=== PATIENT | male | born 1965 | race Caucasian/White ===

== ENCOUNTER 2018-12-19 07:54 | Emergency (ER) | payer MEDICARE ==
[2018-12-19] MEDS ORDERED: ONDANSETRON HCL INJ/PF 4 MG/2 ML SDV IV ONE (08:29)
[2018-12-19] MEDS ORDERED: MORPHINE SULFATE 10 MG/ML INJ IV ONE (08:30)
[2018-12-19 08:47] LABS: HEMATOCRIT 48.9 % (37.9-51.0); HEMOGLOBIN 16.5 g/dL (13.5-17.0); MEAN CORPUSCULAR HEMOGLOBIN 31.5 pg (27.0-33.4); MEAN CORPUSCULAR HGB CONC 33.8 g/dL (32.0-36.0); MEAN CORPUSCULAR VOLUME 93 fl (80-97); PLATELET COUNT 242 10^3/uL (150-450); RED BLOOD COUNT 5.26 10^6/uL (4.35-5.55); RED CELL DISTRIBUTION WIDTH 13.8 % (11.5-14.0); WHITE BLOOD COUNT 12.4 10^3/uL (4.0-10.5)
--- NOTE | 2018-12-19 09:00 | ER Document Report ---
ED General - General Chief Complaint: Abdominal Pain Stated Complaint: STOMACH PAIN Time Seen by Provider: 12/19/18 08:20 Notes: Patient is a 53-year-old male who presents emergency department with a chief complaint of abdominal pain. Patient states that he is gained 20 pounds in the last 2 weeks. Patient did have a hernia repair about 4 years ago with a mesh placed. He states that there is apparently a recall on the mesh that was placed . Patient states that he has had some nausea and vomiting. He also states that he has been constipated. He then took a stool softener and since then has had diarrhea. He states that his stools are not normal stools and he feels like he is in "skinny stools." Patient has a past medical history of PTSD and depression. He reports a recent change in his medications from Effexor to Cymbalta. TRAVEL OUTSIDE OF THE [place] IN LAST 30 DAYS: No - Related Data Allergies/Adverse Reactions: No Known Allergies Allergy (Unverified 12/19/18 08:05) Past Medical History - Social History Smoking Status: Current Every Day Smoker Chew tobacco use (# tins/day): No Frequency of alcohol use: None Drug Abuse: None Family History: Reviewed & Not Pertinent Patient has suicidal ideation: No Patient has homicidal ideation: No Review of Systems - Review of Systems Notes: REVIEW OF SYSTEMS: CONSTITUTIONAL : Denies recent illness. Denies recent unintentional weight loss. Denies fever, chills, or sweats. EENT: Denies eye, ear, throat, or mouth pain, discharge, or symptoms. Denies nasal or sinus congestion. CARDIOVASCULAR: Denies chest pain. RESPIRATORY: Denies shortness of breath, cough, congestion, difficulty breathing, or wheezing. GASTROINTESTINAL: See HPI. GENITOURINARY: Denies difficulty urinating, burning, blood in urine, urgency or frequency. MUSCULOSKELETAL: Denies neck and back pain. Denies joint pain or swelling. SKIN: Denies rash, itchiness, or lesions HEMATOLOGIC : Denies easy bruising or bleeding. LYMPHATIC: Denies swollen, painful, enlarged glands. NEUROLOGICAL: Denies no numbness or tingling denies weakness. Denies headache. Denies altered mental status. Denies alteration in speech. PSYCHIATRIC: Denies stress, anxiety, alteration in sleep patterns, or depression. All other systems reviewed and negative. Physical Exam - Vital signs Vitals: Temp Pulse Resp BP Pulse Ox 98.2 F 87 20 151/89 H 97 12/19/18 08:02 12/19/18 08:02 12/19/18 08:02 12/19/18 08:02 12/19/18 08:02 - Notes Notes: PHYSICAL EXAMINATION: GENERAL: Appears well, healthy, well-nourished, no acute distress. HEAD: Normocephalic, atraumatic. EYES: PERRL, conjunctiva normal, all extraocular movements intact, sclera nonicteric ENT: Moist mucous membranes. NECK: Supple, no noticeable swelling, redness, rash. Normal range of motion. LUNGS: Equal breath sounds bilaterally and clear to auscultation. No wheezes rales or rhonchi. CARDIOVASCULAR: S1-S2, regular rate, regular rhythm. Grade 3 systolic murmur. Radial pulses 2+, normal. ABDOMEN: Normoactive bowel sounds. Firm, rounded abdomen. EXTREMITIES: Normal strength and range of motion, no pitting or edema. No cyanosis. NEUROLOGICAL: Moves all extremities upon command. Strength 5/5 in all extremities. PSYCH: Normal mood, normal affect. SKIN: Warm, dry. No rash, lesions, ulcerations noted. Normal skin turgor. Course - Re-evaluation Re-evalutation: 12/19/18 11:[address] of the abdomen and pelvis show a normal amount of omentum is fat noted. There is no incarcerated bowel noted. CBC, chemistries, and urinalysis are all unremarkable. Patient will follow-up with surgery outpatient. Follow- up precautions were given. Verbal discharge instructions were given to the patient. They verbalized understanding. They are stable for discharge. - Vital Signs Vital signs: Temp Pulse Resp BP Pulse Ox 98.2 F 87 20 151/89 H 97 12/19/18 08:02 12/19/18 08:02 12/19/18 08:02 12/19/18 08:02 12/19/18 08:02 - Laboratory Result Diagrams: 12/19/18 08:35 12/19/18 08:35 Laboratory results interpreted by me: 12/19/18 12/19/18 08:35 08:35 WBC 12.4 H Band Neutrophils % 1 L Monocytes % (Manual) 2 L Metamyelocytes % 2 H Abs Neuts (Manual) 8.6 H Carbon Dioxide 21 L Glucose 174 H - EKG Interpretation by Me Additional EKG results interpreted by me: 12/19/18 09:01 Sinus rhythm with an incomplete right bundle branch block. Rate 99. AR 132; QR S 110; QT 348; QTc 447. No ST elevations or depressions noted. Discharge - Discharge Clinical Impression: Fatty hernia of linea alba Abdominal pain Qualifiers: Abdominal location: unspecified location Qualified Code(s): R10.9 - Unspecified abdominal pain Condition: Stable Disposition: HOME, SELF-CARE Instructions: Abdominal Pain ([facility]), Antinausea Medication ([facility]) Additional Instructions: You were seen today in the emergency department for abdominal pain. You have a fat hernia. Please follow-up with surgery in regards to this visit. They can evaluate your previous hernia repair. Make sure you splint your abdomen when you cough. You also are constipated. Make sure you eat green leafy vegetables and fruits high in fiber. You are also being placed on MiraLAX to help with your bowel movements. You can buy this [id number] or use the prescription sent home with you. You are also being sent home with Zofran, medication for nausea. Prescriptions: Polyethylene Glycol 3350 [Miralax] 1 cap PO DAILY #527 powder Ondansetron HCl [Zofran 4 mg Tablet] 1 - 2 tab PO Q4H PRN #10 tablet PRN Reason: Forms: Return to Work Referrals: SAMY HAMMER MD [[facility]] - Follow up in 3-5 days IAN CASAS DC [NO LOCAL MD] - Follow up as needed
[2018-12-19 09:02] LABS: APPEARANCE,URINE CLEAR; BILIRUBIN,URINE NEGATIVE (NEGATIVE); COLOR,URINE YELLOW; GLUCOSE, URINE NEGATIVE (NEGATIVE); KETONES,URINE NEGATIVE (NEGATIVE); LEUKOCYTE ESTERASE,URINE NEGATIVE (NEGATIVE); NITRITE,URINE NEGATIVE (NEGATIVE); PROTEIN,URINE NEGATIVE (NEGATIVE); URINE SPECIFIC GRAVITY 1.023; UROBILINOGEN,URINE NEGATIVE mg/dL (<2.0)
[2018-12-19 09:06] LABS: ALBUMIN 4.3 g/dL (3.5-5.0); ALKALINE PHOSPHATASE 76 U/L (38-126); ANION GAP 11 (5-19); ASPARTATE AMINO TRANSFERASE 21 U/L (17-59); BILIRUBIN,DIRECT 0.1 mg/dL (0.0-0.4); BILIRUBIN,TOTAL 0.9 mg/dL (0.2-1.3); BLOOD UREA NITROGEN 18 mg/dL (7-20); CARBON DIOXIDE 21 mmol/L (22-30); CHLORIDE 106 mmol/L (98-107); GLUCOSE 174 mg/dL (75-110); POTASSIUM 4.1 mmol/L (3.6-5.0); TOTAL PROTEIN 7.3 g/dL (6.3-8.2)
[2018-12-19] MEDS ORDERED: NORMAL SALINE 1000 ML 1,000 ML IV ONE (09:20)
[2018-12-19 09:21] LABS: ABSOLUTE LYMPHOCYTES# (MANUAL) 3.6 10^3/uL (0.5-4.7); ABSOLUTE MONOCYTES # (MANUAL) 0.2 10^3/uL (0.1-1.4); BAND NEUTROPHILS % (MANUAL) 1 % (3-5); BASOPHILS % (MANUAL) 0 % (0-2); EOSINOPHILS % (MANUAL) 0 % (0-6); LYMPHOCYTES % (MANUAL) 25 % (13-45); METAMYELOCYTES % (MANUAL) 2 % (0); MONOCYTES % (MANUAL) 2 % (3-13); OVALOCYTES SLIGHT; PLATELET COMMENT ADEQUATE; POIKILOCYTOSIS SLIGHT; SEGMENTED NEUTROPHILS % (MAN) 66 % (42-78); TOTAL CELLS COUNTED 100
--- NOTE | 2018-12-19 10:59 | RADIOLOGY REPORT (SQ) ---
EXAM DESCRIPTION: CT ABD/PELVIS WITH IV ONLY COMPLETED DATE/TIME: 12/19/2018 10:32 am REASON FOR STUDY: abdominal pain/distension COMPARISON: None. TECHNIQUE: CT scan of the abdomen and pelvis performed using helical scanning technique with dynamic intravenous contrast injection. No oral contrast. Images reviewed with lung, soft tissue, and bone windows. Reconstructed coronal and sagittal MPR images reviewed. Delayed images for evaluation of the urinary system also acquired. All images stored on PACS. All CT scanners at this facility use dose modulation, iterative reconstruction, and/or weight based d osing when appropriate to reduce radiation dose to as low as reasonably achievable (ALARA). [facility]: Dose Right [facility]: CareDose [facility]: Dose Right [facility]: Teradose 4D [facility]: Oppex CONTRAST TYPE AND DOSE: contrast/concentration: Isovue 350.00 mg/ml; Total Contrast Delivered: 100.0 ml; Total Saline Delivered: 42.0 ml RENAL FUNCTION: BUN 18, creatinine 0.7 RADIATION DOSE: CT Rad equipment meets quality standard of care and radiation dose reduction techniq ues were employed. CTDIvol: 18.0 - 19.4 mGy. DLP: 1952 mGy-cm.. LIMITATIONS: None. FINDINGS: LOWER CHEST: No significant findings. No nodules or infiltrates. LIVER: Normal size. No masses. No dilated ducts. SPLEEN: Normal size. No focal lesions. PANCREAS: No masses. No significant calcifications. No adjacent inflammation or peripancreatic fluid collections. Pancreatic duct not dilated. GALLBLADDER: No identified stones by CT criteria. No inflammatory changes to suggest cholecystitis. ADRENAL GLANDS: No significant masses or asymmetry. RIGHT KIDNEY AND URETER: No solid masses. No significant calcifications. No hydronephrosis or hyd roureter. LEFT KIDNEY AND URETER: No solid masses. No significant calcifications. No hydronephrosis or hydr oureter. AORTA AND VESSELS: No aneurysm. No dissection. Renal arteries, SMA, celiac without stenosis. RETROPERITONEUM: No retroperitoneal adenopathy, hemorrhage or masses. BOWEL AND PERITONEAL CAVITY: No masses or inflammatory changes. No free fluid or peritoneal masses. APPENDIX: Surgically absent. PELVIS: No mass. No free fluid. Normal bladder. ABDOMINAL WALL: There is an umbilical hernia containing omental fat only. Mild induration within the herniated fat most likely representing ischemic change. BONES: No significant or acute findings. OTHER: No other significant finding. IMPRESSION: Indurated umbilical hernia containing omental fat only. This most likely represents inf arcted omental fat. No other significant findings. Prior appendectomy. TECHNICAL DOCUMENTATION: JOB ID: [id number] Quality ID # [id number]: Final reports with documentation of one or more dose reduction techniques (e.g., Au tomated exposure control, adjustment of the mA and/or kV according to patient size, use of iterative reconstruction technique) 2010 [employer]- All Rights Reserved Reading location - IP/workstation name: [email or web address]
[2018-12-19 11:40] VITALS: BP 134/85
--- NOTE | 2018-12-19 19:59 | EKG REPORT ---
SEVERITY:- ABNORMAL ECG - SINUS RHYTHM PROBABLE LEFT ATRIAL ABNORMALITY INCOMPLETE RIGHT BUNDLE BRANCH BLOCK BORDERLINE INFERIOR Q WAVES : Confirmed by: Sabra Fung MD 19-Dec-2018 19:58:14
== END 2018-12-19 11:40 | disposition home or self-care (01) ==
LOC: ER 07:54
DX: K43.9 Ventral hernia without obstruction or gangrene (principal); R10.9 Unspecified abdominal pain; I45.10 Unspecified right bundle-branch block; R63.5 Abnormal weight gain; R11.2 Nausea with vomiting, unspecified; R19.7 Diarrhea, unspecified; F17.200 Nicotine dependence, unspecified, uncomplicated; F32.9 Major depressive disorder, single episode, unspecified; F43.10 Post-traumatic stress disorder, unspecified; Z79.899 Other long term (current) drug therapy; Z98.890 Other specified postprocedural states
CPT/HCPCS: 93005; 99284; 96361; 96374; 96375; 36415; 83690; 85025; 80053; 81001; 74177; 93010; J2270; J2405; J7030

== ENCOUNTER 2018-12-20 12:54 | Emergency (ER) | payer MEDICARE ==
--- NOTE | 2018-12-20 13:06 | ER Document Report ---
ED Medical Screen (RME) - General Chief Complaint: Headache Stated Complaint: ABDOMINAL PAIN, BLURRED VISION Time Seen by Provider: 12/20/18 13:00 Mode of Arrival: Wheelchair Information source: Patient Notes: 53-year-old male presented to ED for complaint of severe headaches. He states his worst headache of his life. He states he was here yesterday for abdominal pain had blood work and CT scans and was told her to get any worse to come back. He states he can feel his heart pounding in his left ear and his chest tube. States he does not have any chest pain his abdomen pain is better. He states his blood pressure was 165/110 when he woke up and he is very concerned and came back to the emergency room. He states he had a lot of things happen to him in the past but this is the worst pain he is ever had and had in his life. I have ordered a CAT scan as well as blood work. We will take him back to CAT scan as soon as possible and have him examined by providers. My I have greeted and performed a rapid initial assessment of this patient. A comprehensive ED assessment and evaluation of the patient, analysis of test results and completion of medical decision making process will be conducted by an additional ED providers. TRAVEL OUTSIDE OF THE [place] IN LAST 30 DAYS: No - Related Data Allergies/Adverse Reactions: No Known Allergies Allergy (Verified 12/20/18 13:01) Past Medical History Past Surgical History: Reports: Hx Orthopedic Surgery - neck and back
--- NOTE | 2018-12-20 13:28 | RADIOLOGY REPORT (SQ) ---
EXAM DESCRIPTION: CT HEAD WITHOUT COMPLETED DATE/TIME: 12/20/2018 1:14 pm REASON FOR STUDY: worst headache of his life COMPARISON: None. TECHNIQUE: Axial images acquired through the brain without intravenous contrast. Images reviewed wi th bone, brain and subdural windows. Additional sagittal and coronal reconstructions were generated. Images stored on PACS. All CT scanners at this facility use dose modulation, iterative reconstruction, and/or weight based d osing when appropriate to reduce radiation dose to as low as reasonably achievable (ALARA). [facility]: Dose Right [facility]: CareDose [facility]: Dose Right [facility]: Teradose 4D [facility]: [employer] RADIATION DOSE: CT Rad equipment meets quality standard of care and radiation dose reduction techniq ues were employed. CTDIvol: 53.2 mGy. DLP: 1070 mGy-cm. mGy. LIMITATIONS: None. FINDINGS: VENTRICLES: Normal size and contour. CEREBRUM: No masses. No hemorrhage. No midline shift. No evidence for acute infarction. Normal gra y/white matter differentiation. No areas of low density in the white matter. CEREBELLUM: No masses. No hemorrhage. No alteration of density. No evidence for acute infarction. EXTRAAXIAL SPACES: No fluid collections. No masses. ORBITS AND GLOBE: No intra- or extraconal masses. Normal contour of globe without masses. CALVARIUM: No fracture. PARANASAL SINUSES: No fluid or mucosal thickening. SOFT TISSUES: No mass or hematoma. OTHER: No other significant finding. IMPRESSION: No acute intracranial pathology. EVIDENCE OF ACUTE STROKE: NO. COMMENT: Quality ID # 436: Final reports with documentation of one or more dose reduction techniques (e.g., Automated exposure control, adjustment of the mA and/or kV according to patient size, use of iterative reconstruction technique) TECHNICAL DOCUMENTATION: JOB ID: [id number] [employer]- All Rights Reserved Reading location - IP/workstation name: [email or web address]
[2018-12-20 13:56] LABS: ABSOLUTE LYMPHOCYTES (AUTO) 2.8 10^3/uL (0.5-4.7); ABSOLUTE MONOCYTES (AUTO) 0.8 10^3/uL (0.1-1.4); ABSOLUTE NEUT (AUTO) 7.5 10^3/uL (1.7-8.2); BASOPHILS % (AUTO) 0.3 % (0-2); EOSINOPHILS % (AUTO) 0.2 % (0-6); HEMATOCRIT 50.2 % (37.9-51.0); HEMOGLOBIN 16.8 g/dL (13.5-17.0); LYMPHOCYTES % (AUTO) 24.8 % (13-45); MEAN CORPUSCULAR HEMOGLOBIN 31.1 pg (27.0-33.4); MEAN CORPUSCULAR HGB CONC 33.5 g/dL (32.0-36.0); MEAN CORPUSCULAR VOLUME 93 fl (80-97); MONOCYTES % (AUTO) 7.1 % (3-13); PLATELET COUNT 239 10^3/uL (150-450); RED BLOOD COUNT 5.41 10^6/uL (4.35-5.55); RED CELL DISTRIBUTION WIDTH 13.8 % (11.5-14.0); SEGMENTED NEUTROPHILS % (AUTO) 67.6 % (42-78); TOTAL CELLS COUNTED % (AUTO) 100 %; WHITE BLOOD COUNT 11.2 10^3/uL (4.0-10.5)
[2018-12-20 14:03] LABS: APPEARANCE,URINE CLEAR; BILIRUBIN,URINE NEGATIVE (NEGATIVE); COLOR,URINE YELLOW; GLUCOSE, URINE NEGATIVE (NEGATIVE); KETONES,URINE NEGATIVE (NEGATIVE); LEUKOCYTE ESTERASE,URINE NEGATIVE (NEGATIVE); NITRITE,URINE NEGATIVE (NEGATIVE); PROTEIN,URINE NEGATIVE (NEGATIVE); URINE SPECIFIC GRAVITY 1.024; UROBILINOGEN,URINE NEGATIVE mg/dL (<2.0)
--- NOTE | 2018-12-20 14:08 | ER Document Report ---
ED General - General Chief Complaint: Headache Stated Complaint: ABDOMINAL PAIN, BLURRED VISION Time Seen by Provider: 12/20/18 13:00 Primary Care Provider: TEX CASAS MD [Primary Care Provider] - Follow up as needed Mode of Arrival: Wheelchair TRAVEL OUTSIDE OF THE [place] IN LAST 30 DAYS: No - HPI Notes: He relates to me a history of headache that he is now have for the better part of 4 to 5 weeks. He seen his primary care doctor for this and is being worked up. He describes a left frontal parietal headache, gradual onset, comes and goes but is there pretty much every day. No trauma, no neck pain or stiffness. No fever. No neurologic complaints. No photophobia. No personal or family history of venous thromboembolism, hypercoagulability or aneurysm. No other modifying factors, no other associated symptoms, no other provocative or pa lliative factors. - Related Data Allergies/Adverse Reactions: No Known Allergies Allergy (Verified 12/20/18 13:01) Past Medical History - General Information source: Patient - Social History Smoking Status: Current Some Day Smoker Chew tobacco use (# tins/day): No Frequency of alcohol use: None Drug Abuse: None Family History: Reviewed & Not Pertinent Patient has suicidal ideation: No Patient has homicidal ideation: No - Past Medical History Cardiac Medical History: Reports: Hx Hypercholesterolemia, Hx Hypertension Past Surgical History: Reports: Hx Appendectomy, Hx Orthopedic Surgery - neck and back Review of Systems - Review of Systems Notes: Review of systems as in the history of present illness, otherwise negative x 10 systems. Physical Exam - Vital signs Vitals: Temp Pulse Resp BP Pulse Ox 98.6 F 116 H 22 H 138/102 H 97 12/20/18 13:00 12/20/18 13:00 12/20/18 13:00 12/20/18 13:00 12/20/18 13:00 - Notes Notes: General: Well developed, well nourished. HEENT: Normocephalic, atraumatic. PEERL. No conjunctival injection. Neck: Supple, no significant adenopathy. No meningismus. Chest: Clear bilaterally, good air entry. Abdomen: Soft, non-tender, nondistended. Back: Non-tender. Normal ROM Extremities: No cyanosis, clubbing or edema. Vascular: Symmetric peripheral pulses, normal capillary refill. Skin: No significant rash. No petechiae or purpura. Motor: Normal tone and power. Symmetric. Neurologic: Alert and oriented to person place and time. Cranial nerves II-12 are intact. Sensation intact and symmetric in the upper and lower extremities. No cerebellar findings including finger-nose testing. No clonus. Gait normal. Funduscopic exam shows crisp disc margins, no evidence of papilledema. Course - Re-evaluation Re-evalutation: 12/20/18 14:06 Well-appearing male with intermittent chronic headache, seen by physician in triage ordered extended work-up. Work-up thus far is unremarkable, head CT is normal. Patient has a normal exam, no papilledema, gradual onset waxing and waning headache. No thunderclap headache, no associated neck symptoms, my suspicion for SAH or intracranial hemorrhage is exceptionally low. Of note, normal head CT shows no evidence of mass, edema or bleed. Patient is given a dose of an prescription for Fioricet, close outpatient follow-up, will return if worsening. - Vital Signs Vital signs: Temp Pulse Resp BP Pulse Ox 98.6 F 116 H 13 120/84 93 12/20/18 13:00 12/20/18 13:00 12/20/18 13:42 12/20/18 13:42 12/20/18 13:42 - Laboratory Result Diagrams: 12/20/18 13:30 12/20/18 13:30 Laboratory results interpreted by me: 12/20/18 13:30 WBC 11.2 H - EKG Interpretation by [place] EKG shows normal: Sinus rhythm, [place], Intervals, QRS Complexes Discharge - Discharge Clinical Impression: Headache Qualifiers: Headache type: unspecified Headache chronicity pattern: acute headache Intractability: not intractable Qualified Code(s): R51 - Headache Condition: Stable Disposition: HOME, SELF-CARE Instructions: Headache ([facility]) Prescriptions: Butalb/Acetaminophen/Caffeine [Fioricet (50-325-40 mg) Tablet] 1 - 2 tab PO Q4H #20 tab Referrals: TEX CASAS MD [Primary Care Provider] - Follow up tomorrow
[2018-12-20 14:10] LABS: PROTHROMBIN TIME 12.1 SEC (11.4-15.4)
[2018-12-20 14:11] LABS: PARTIAL THROMBOPLASTIN TIME 25.5 SEC (23.5-35.8)
[2018-12-20] MEDS ORDERED: BUTALB/ACETAMINOPHEN/CAFFEINE 1 TAB EACH PO ONE (14:12)
[2018-12-20 14:14] LABS: ALBUMIN 4.5 g/dL (3.5-5.0); ALKALINE PHOSPHATASE 75 U/L (38-126); ANION GAP 8 (5-19); ASPARTATE AMINO TRANSFERASE 23 U/L (17-59); BILIRUBIN,DIRECT 0.2 mg/dL (0.0-0.4); BILIRUBIN,TOTAL 0.9 mg/dL (0.2-1.3); BLOOD UREA NITROGEN 20 mg/dL (7-20); CALCIUM 9.8 mg/dL (8.4-10.2); CARBON DIOXIDE 28 mmol/L (22-30); CHLORIDE 102 mmol/L (98-107); GLUCOSE 95 mg/dL (75-110); POTASSIUM 4.3 mmol/L (3.6-5.0); TOTAL PROTEIN 7.5 g/dL (6.3-8.2)
[2018-12-20 14:49] VITALS: BP 124/80
--- NOTE | 2018-12-20 21:51 | EKG REPORT ---
SEVERITY:- ABNORMAL ECG - SINUS TACHYCARDIA PROBABLE LEFT ATRIAL ABNORMALITY INCOMPLETE RIGHT BUNDLE BRANCH BLOCK BORDERLINE INFERIOR Q WAVES : Confirmed by: Sabra Fung MD 20-Dec-2018 21:50:19
== END 2018-12-20 14:54 | disposition home or self-care (01) ==
LOC: ER 12:54
DX: R51 Headache (principal); H53.8 Other visual disturbances; F17.200 Nicotine dependence, unspecified, uncomplicated; E78.00 Pure hypercholesterolemia, unspecified; I10 Essential (primary) hypertension
CPT/HCPCS: 93005; 99284; 36415; 83690; 85025; 85610; 85730; 80053; 81001; 70450; 93010; A9270; J3490

== ENCOUNTER 2019-01-03 10:08 | Day surgery (SDC) | payer MEDICARE ==
[2018-12-31 10:14] LABS: HEMATOCRIT 51.3 % (37.9-51.0); HEMOGLOBIN 17.7 g/dL (13.5-17.0); MEAN CORPUSCULAR HGB CONC 34.5 g/dL (32.0-36.0); MEAN CORPUSCULAR VOLUME 93 fl (80-97); PLATELET COUNT 293 10^3/uL (150-450); RED BLOOD COUNT 5.53 10^6/uL (4.35-5.55); WHITE BLOOD COUNT 16.8 10^3/uL (4.0-10.5)
--- NOTE | 2018-12-31 10:46 | RADIOLOGY REPORT (SQ) ---
EXAM DESCRIPTION: CHEST PA/LATERAL COMPLETED DATE/TIME: 12/31/2018 10:06 am REASON FOR STUDY: PRE-OP COMPARISON: None. EXAM PARAMETERS: NUMBER OF VIEWS: two views TECHNIQUE: Digital Frontal and Lateral radiographic views of the chest acquired. RADIATION DOSE: NA LIMITATIONS: none FINDINGS: LUNGS AND PLEURA: No opacities, masses or pneumothorax. No pleural effusion. MEDIASTINUM AND HILAR STRUCTURES: No masses or contour abnormalities. HEART AND VASCULAR STRUCTURES: Heart normal size. No evidence for failure. BONES: No acute findings. HARDWARE: None in the chest. OTHER: No other significant finding. IMPRESSION: NO SIGNIFICANT RADIOGRAPHIC FINDING IN THE CHEST. TECHNICAL DOCUMENTATION: JOB ID: [id number] [employer]- All Rights Reserved Reading location - IP/workstation name: [email or web address]
[2018-12-31 10:50] LABS: ANION GAP 12 (5-19); BLOOD UREA NITROGEN 24 mg/dL (7-20); CALCIUM 10.3 mg/dL (8.4-10.2); CARBON DIOXIDE 22 mmol/L (22-30); CHLORIDE 103 mmol/L (98-107); GLUCOSE 105 mg/dL (75-110); POTASSIUM 5.1 mmol/L (3.6-5.0)
--- NOTE | 2019-01-01 21:44 | EKG REPORT ---
SEVERITY:- ABNORMAL ECG - SINUS RHYTHM PROBABLE INFERIOR INFARCT, AGE INDETERMINATE : Confirmed by: Megan Aponte 01-Jan-2019 21:43:54
[~2019-01-03 10:08] MED LIST: ACETAMINOPHEN 1,000 MG/100 ML RTUPB IV PRN; ACETAMINOPHEN 325 MG TABLET PO PRN; CEFAZOLIN SODIUM 2 GM in DEXTROSE 5%-WATER 100 ML IV PRN; DEXAMETHASONE SOD PHOSPHATE INJ 4 MG/1 ML VIAL ONE; GLYCOPYRROLATE 1 MG/5 ML VIAL ONE; IBUPROFEN 800 MG in NORMAL SALINE 250 ML IV PRN; LACTATED RINGERS 1000 ML IV PRN; LIDOCAINE 0.5% INJ-PF (5 MG/ML) 50 ML SDV SUBCUT PRN; ONDANSETRON HCL INJ/PF 4 MG/2 ML SDV ONE; PREGABALIN 50 MG CAPSULE PO PRN; ROCURONIUM BROMIDE INJ 50 MG/5 ML VIAL IV ONE; SUCCINYLCHOLINE CHLORIDE INJ 200 MG/10 ML VIAL ONE
[2019-01-03] MEDS ORDERED: FENTANYL CITRATE INJ/PF 100 MCG/2 ML AMPUL ONE ×2 (10:23→12:02)
[2019-01-03] MEDS ORDERED: PROPOFOL INJ 200 MG/20 ML VIAL IV ONE (10:24)
[2019-01-03] MEDS ORDERED: MIDAZOLAM 2 MG/2 ML INJ ONE (10:24)
[2019-01-03] MEDS ORDERED: ACETAMINOPHEN 1,000 MG/100 ML RTUPB IV ONE (10:41)
[2019-01-03] MEDS ORDERED: ONDANSETRON HCL INJ/PF 4 MG/2 ML SDV ONE (12:02)
[2019-01-03] MEDS ORDERED: DEXAMETHASONE SOD PHOSPHATE INJ 4 MG/1 ML VIAL ONE (12:02)
[2019-01-03] MEDS ORDERED: BUPIVACAINE HCL 0.25 % INJ/PF (2.5 MG/1 ML) 30 ML VIAL ONE ×2 (12:03→12:53)
[2019-01-03] MEDS ORDERED: FENTANYL CITRATE INJ/PF 100 MCG/2 ML AMPUL IV PRN ×3 (13:04)
[2019-01-03] MEDS ORDERED: DIPHENHYDRAMINE HCL 50 MG/ML VIAL IV PRN (13:04)
[2019-01-03] MEDS ORDERED: OXYCODONE-ACETAMINOPHEN 5-325 MG TABLET PO PRN ×2 (13:04)
[2019-01-03] MEDS ORDERED: ONDANSETRON HCL INJ/PF 4 MG/2 ML SDV IV PRN (13:04)
[2019-01-03] MEDS ORDERED: MORPHINE SULFATE 10 MG/ML INJ IV PRN (13:04)
[2019-01-03] MEDS ORDERED: MEPERIDINE HCL/PF INJ 25 MG/1 ML DISP.SYRIN IV PRN (13:04)
[2019-01-03] MEDS ORDERED: MEPERIDINE HCL/PF INJ 25 MG/1 ML DISP.SYRIN ONE (15:07)
[2019-01-03] MEDS ORDERED: HYDROCODONE/ACETAMINOPHEN 10-325 MG TABLET PO PRN (15:26)
[2019-01-03 17:15] VITALS: BP 112/75
[2019-01-03] MEDS ORDERED: IBUPROFEN 800 MG TABLET PO SCH (18:00)
--- NOTE | 2019-01-04 07:40 | Discharge Summary ---
Discharge Summary (SDC) - Discharge Final Diagnosis: Chronic cholecystitis, symptomatic incarcerated umbilical hernia Date of Surgery: 01/03/19 Discharge Date: 01/03/19 Condition: Stable Forms: ASU Anesthesia D/C Instruction, Discharge POC-Surgical Service Treatment or Instructions: NO DRIVING. NO ALCOHOL. NO LEGAL DECISIONS OR ACTIVITIES THAT REQUIRE YOU FULL ATTENTION. MAY SHOWER AFTER 48 HOURS. NO TUB BATHS, HOT TUBS, OR SWIMMING. NO LIFTING OVER 10 POUNDS FOR 6 WEEKS. GO TO THE EMERGENCY FOR UNCONTROLLED PAIN, DIFFICULTY BREATHING, BLEEDING THAT WON'T STOP, OR CHEST PAIN. KEEP YOUR FOLLOW-UP APPOINTMENT REVIEW YOUR DISCHARGE PAPERWORK. Referrals: TAMAR ENCINAS MD [ACTIVE STAFF] - 01/14/19 1:45 pm Discharge Diet: As Tolerated Respiratory Treatments at Home: Deep Breathing/Coughing, Incentive Spirometer Discharge Activity: Balance Activity w/Rest, No Lifting Over 10 Pounds, No Lifting/Push/Pulling, Slowly Increase Activity, No tub bath Home Care Assistance: None Needed Report the Following to Your Physician Immediately: Shortness of Breath, Nausea, Vomiting, Increase in Pain, Yellow Skin, Fever over 101 Degrees, Unusual Bleeding, Redness, Drainage-Foul Smelling, Large Clots
--- NOTE | 2019-01-04 07:52 | Operative Report ---
Nonrecallable Operative Report DATE OF SURGERY: 01/03/19 PREOPERATIVE DIAGNOSIS: Incarcerated umbilical hernia, symptomatic gallstones. POSTOPERATIVE DIAGNOSIS: 1. Chronic cholecystitis, with dense inflammatory reaction around the gallbladder. 2. Incarcerated umbilical hernia (containing omental fat). OPERATION: 1. Laparoscopic cholecystectomy. 2. Laparoscopic primary repair of incarcerated umbilical hernia (no mesh was used due to the risk of infection related to his chronic cholecystitis). SURGEON: TAMAR ENCINAS 1ST MANAGER ASSET MANAGEMENT: JENNIFER GUO ANESTHESIA: GA TISSUE REMOVED OR ALTERED: Gallbladder COMPLICATIONS: No mesh was used to repair the hernia due to the large amount of inflammatory reaction surrounding his gallbladder, and the fact that the gallbladder ruptured during removal. The hernia was closed primarily, using suture. ESTIMATED BLOOD LOSS: 30 cc PROCEDURE: Drains/implants: None. Procedure in detail: After informed consent was obtained, the patient was brought to the operating room and laid in the supine position. The area of the abdomen was prepped and draped in a normal sterile fashion. An incision was created in the right upper quadrant. The 5 mm trocar and 5 mm camera were inserted into the abdominal cavity using the Optiview technique. Once the trocar was inserted, gas insufflation was attached, and pneumoperitoneum was achieved. The umbilical hernia defect was easily identified. There was omentum incarcerated within the umbilical hernia defect. A right lower quadrant 12 mm trocar was then placed under direct laparoscopic visualization. This was situated in an area that would not interfere with subsequent hernia repair. A subxiphoid 5 mm port and a right lateral abdominal 5 mm port were placed under direct laparoscopic visualization. The patient was then situated in head up and tilt left position. The gallbladder was inspected. It was tense, distended, and had an inflammatory reaction surrounding the entire gallbladder. The gallbladder was retracted cranially. Omentum was cleaned away from the inflamed gallbladder wall. The infundibulum was identified. Dissection was begun in the triangle of [place]. Again, there was a dense inflammatory reaction in and around the infundibulum. The cystic duct and cystic artery were identified. They were skeletonized using blunt dissection. Once the critical view of safety was obtained, the cystic duct and cystic artery were clipped and cut with laparoscopic instruments. The gallbladder was then removed from the liver using a mixture of Bovie electrocautery as well as sharp and blunt dissection. Due to the dense inflammatory reaction, removal of the gallbladder was somewhat difficult. Rupture of the gallbladder occurred during removal. The abdomen was irrigated and suctioned. The gallbladder was then placed into an Endo Catch bag and pulled out through the umbilicus. The hilum was inspected. It was found to be free of any leakage of blood or bile. Attention was then turned to the umbilical hernia. There was a large amount of omentum incarcerated within the patient's umbilical hernia. The omentum was freed from the defect using manual external pressure, as well as sharp and blunt dissection. Once all the omentum was freed, the defect was identified and measured. It was very small, less than 2 cm. Owing to the large amount of inflammation around the gallbladder, and the rupture of the gallbladder during its removal, it was felt most appropriate to avoid the use of prosthetic mesh. An incision was created superior to the umbilicus. The Luis-Alana device was then used to place interrupted 0 Ethibond sutures to close the defect. 3 interrupted 0 Ethibond sutures were used in total. This closed the defect very well. A final [id number] Ethibond was used to buttress the repair. This was also placed using the Luis-Alana device. Once this was completed, the repair was inspected. It was found to be in good order. The defect was closed. Attention was then turned to closure of the 12 mm trocar site. 12 mm trocar was removed. The trocar site was closed using 0 Vicryl suture in [id number] fashion with the aid of the Luis-Alana device. The 5 mm trochars were then removed. The overlying skin was closed using 4-0 Vicryl Rapide suture in subcuticular fashion. Dressings were placed, and the procedure was concluded. All sponge, instrument, and needle counts were correct x2. Condition: Stable. Jennifer uGo PA-C was scrubbed and present the entirety of the procedure. She assisted with all portions of the procedure including placement of the trochars, manipulation of the gallbladder, removal of the gallbladder, reduction of the incarcerated omentum, closure of the hernia defect, closure of the trocar sites, and closure of the skin.
== END 2019-01-03 17:05 | disposition home or self-care (01) ==
LOC: OROUT 10:08
PROVIDERS: ATTEND Surgery
DX: K81.1 Chronic cholecystitis (principal); K42.0 Umbilical hernia with obstruction, without gangrene; Z79.899 Other long term (current) drug therapy; I10 Essential (primary) hypertension; E66.3 Overweight; F17.210 Nicotine dependence, cigarettes, uncomplicated
CPT/HCPCS: 93005; 36415 ×2; 84132; 85027; 80048; 88304 ×2; 71046; 93010; 00790; 47562; 49653; J2250; J0690; J3490 ×2; J1100; J3010; J2175; J0330; J2405; J7060; J7050; J2704; J0131; J1741; 790

== ENCOUNTER 2019-01-12 19:01 | Emergency (ER) | payer MEDICARE ==
[2019-01-12] MEDS ORDERED: ONDANSETRON HCL INJ/PF 4 MG/2 ML SDV IV ONE (19:22)
--- NOTE | 2019-01-12 19:24 | ER Document Report ---
ED Medical Screen (RME) - General Chief Complaint: Post Surgical Pain Stated Complaint: POST OP PAIN Time Seen by Provider: 01/12/19 19:21 Mode of Arrival: Wheelchair Information source: Patient Notes: Patient presents complaining of right-sided abdominal pain that radiates through to the back for the past 3 days. Patient states pain will occasionally radiate to the scrotum with nausea. Patient states he will occasionally get diaphoretic with the pain. Patient reports having a cholecystectomy last week with a hernia repair. I have greeted and performed a rapid initial assessment of this patient. A comprehensive ED assessment and evaluation of the patient, analysis of test results and completion of the medical decision making process will be conducted by additional ED providers. TRAVEL OUTSIDE OF THE [place] IN LAST 30 DAYS: No - Related Data Allergies/Adverse Reactions: aspirin Allergy (Verified 01/12/19 19:22) Past Medical History - Past Medical History Cardiac Medical History: Reports: Hx Hypercholesterolemia, Hx Hypertension Denies: Hx Coronary Artery Disease, Hx Heart Attack Pulmonary Medical History: Denies: Hx Asthma, Hx Bronchitis, Hx COPD, Hx Pneumonia Neurological Medical History: Reports: Hx Seizures - MEDICATION INDUCED 90'S. Denies: Hx Cerebrovascular Accident Musculoskeltal Medical History: Denies Hx Arthritis Psychiatric Medical History: Reports: Hx Depression Past Surgical History: Reports: Hx Appendectomy, Hx Orthopedic Surgery - neck and back - Immunizations Hx Diphtheria, Pertussis, Tetanus Vaccination: Yes Physical Exam - Vital signs Vitals: Temp Pulse Resp BP Pulse Ox 98.1 F 80 18 126/76 H 96 01/12/19 19:07 01/12/19 19:07 01/12/19 19:07 01/12/19 19:07 01/12/19 19:07 - Back Back: CVA tenderness - Right Course - Vital Signs Vital signs: Temp Pulse Resp BP Pulse Ox 98.1 F 80 18 126/76 H 96 01/12/19 19:07 01/12/19 19:07 01/12/19 19:07 01/12/19 19:07 01/12/19 19:07
[2019-01-12] MEDS ORDERED: FENTANYL CITRATE INJ/PF 100 MCG/2 ML AMPUL IV ONE ×2 (20:05→21:41)
[2019-01-12 20:06] LABS: ABSOLUTE LYMPHOCYTES (AUTO) 3.8 10^3/uL (0.5-4.7); ABSOLUTE MONOCYTES (AUTO) 0.9 10^3/uL (0.1-1.4); BASOPHILS % (AUTO) 0.3 % (0-2); EOSINOPHILS % (AUTO) 0.2 % (0-6); HEMATOCRIT 44.4 % (37.9-51.0); HEMOGLOBIN 15.1 g/dL (13.5-17.0); LYMPHOCYTES % (AUTO) 32.2 % (13-45); MEAN CORPUSCULAR HEMOGLOBIN 32.1 pg (27.0-33.4); MEAN CORPUSCULAR HGB CONC 34.1 g/dL (32.0-36.0); MEAN CORPUSCULAR VOLUME 94 fl (80-97); MONOCYTES % (AUTO) 7.6 % (3-13); PLATELET COUNT 237 10^3/uL (150-450); RED BLOOD COUNT 4.71 10^6/uL (4.35-5.55); RED CELL DISTRIBUTION WIDTH 13.7 % (11.5-14.0); SEGMENTED NEUTROPHILS % (AUTO) 59.7 % (42-78); TOTAL CELLS COUNTED % (AUTO) 100 %; WHITE BLOOD COUNT 11.8 10^3/uL (4.0-10.5)
[2019-01-12 20:12] LABS: APPEARANCE,URINE CLEAR; BILIRUBIN,URINE NEGATIVE (NEGATIVE); COLOR,URINE YELLOW; GLUCOSE, URINE NEGATIVE (NEGATIVE); KETONES,URINE NEGATIVE (NEGATIVE); PROTEIN,URINE NEGATIVE (NEGATIVE); URINE SPECIFIC GRAVITY 1.025; UROBILINOGEN,URINE NEGATIVE mg/dL (<2.0)
--- NOTE | 2019-01-12 20:15 | ER Document Report ---
ED GI/ - General Chief Complaint: Flank Pain Stated Complaint: POST OP PAIN Time Seen by Provider: 01/12/19 19:21 Primary Care Provider: TEX CASAS MD [Primary Care Provider] - Follow up as needed TAMAR LUCERO MD [ACTIVE STAFF] - Follow up as needed Mode of Arrival: Wheelchair Notes: Patient is a 53-year-old male presents to the emergency department for right lower quadrant abdominal pain, right flank pain and intermittent bilateral testicle pain. Patient voices he had a cholecystectomy and a umbilical hernia repair on 01/03/[address] Lucero. States he was feeling better for a few days. States the last 3 days he has noticed an increase in his pain more so in his right lower quadrant and right flank. Patient also voices to some dysuria although states he does have a neurogenic bladder and typically has some incontinence and intermittent dysuria. Patient states he does have a spinal cord injury does have a stimulator placed. Patient's denying any history of kidney stones. States he has had a history of an appendectomy. Patient voices the incision sites do not hurt when you palpate them nor has he noticed any discharge, redness, swelling. Patient voices he has generalized abdominal pain more so after he eats. Patient is admitting to nausea but is denying any vomiting. Patient voices he has had diarrhea for the last few days. Patient's denying any blood in his stool. Medications: Lisinopril, gabapentin Allergies: Aspirin TRAVEL OUTSIDE OF THE [place] IN LAST 30 DAYS: No - Related Data Allergies/Adverse Reactions: aspirin Allergy (Verified 01/12/19 19:56) Home Medications: BP meds. neurontin Past Medical History - General Information source: Patient - Social History Smoking Status: Current Every Day Smoker Chew tobacco use (# tins/day): No Frequency of alcohol use: None Drug Abuse: None Family History: Reviewed & Not Pertinent Patient has suicidal ideation: No Patient has homicidal ideation: No - Past Medical History Cardiac Medical History: Reports: Hx Hypercholesterolemia, Hx Hypertension Denies: Hx Coronary Artery Disease, Hx Heart Attack Pulmonary Medical History: Denies: Hx Asthma, Hx Bronchitis, Hx COPD, Hx Pneumonia Neurological Medical History: Reports: Hx Seizures - MEDICATION INDUCED 90'S. Denies: Hx Cerebrovascular Accident Musculoskeletal Medical History: Denies Hx Arthritis Psychiatric Medical History: Reports: Hx Depression Past Surgical History: Reports: Hx Appendectomy, Hx Orthopedic Surgery - neck and back - Immunizations Hx Diphtheria, Pertussis, Tetanus Vaccination: Yes Review of Systems - Review of Systems Constitutional: denies: Fever EENT: No symptoms reported Cardiovascular: No symptoms reported Respiratory: No symptoms reported Gastrointestinal: See HPI Genitourinary: See HPI Male Genitourinary: See HPI Musculoskeletal: See HPI Skin: No symptoms reported Hematologic/Lymphatic: No symptoms reported Neurological/Psychological: No symptoms reported Physical Exam - Vital signs Vitals: Temp Pulse Resp BP Pulse Ox 98.1 F 80 18 126/76 H 96 01/12/19 19:07 01/12/19 19:07 01/12/19 19:07 01/12/19 19:07 01/12/19 19:07 - Notes Notes: GENERAL: Alert, interacts well. No acute distress. HEAD: Normocephalic, atraumatic. EYES: Pupils equal, round, and reactive to light. Extraocular movements intact. ENT: Oral mucosa moist, tongue midline. NECK: Full range of motion. Supple. Trachea midline. LUNGS: Clear to auscultation bilaterally, no wheezes, rales, or rhonchi. No respiratory distress. HEART: Regular rate and rhythm. No murmur ABDOMEN: Soft, generalized tenderness noted right flank, right lower quadrant in the left groin. Non-distended. Bowel sounds present in all 4 quadrants. Well- healed surgical scars noted, Steri-Strips still in place, minor ecchymosis but no erythema or discharge noted. EXTREMITIES: Moves all 4 extremities spontaneously. No edema, normal radial and dorsalis pedis pulses bilaterally. No cyanosis. BACK: no cervical, thoracic, lumbar midline tenderness. No saddle anesthesia, normal distal neurovascular exam. NEUROLOGICAL: Alert and oriented x3. Normal speech. cranial nerves II through XII grossly intact PSYCH: Normal affect, normal mood. SKIN: Warm, dry, normal turgor. No rashes or lesions noted. Genitalia: Alexsander Brownlee RN bilateral testicles descended nonerythematous, nontender. No active discharge noted at the penile meatus, circumcised penis. Course - Re-evaluation Re-evalutation: 01/12/19 22:56 Laboratory 01/12/19 01/12/19 01/12/19 19:45 19:45 19:55 WBC 11.8 H RBC 4.71 Hgb 15.1 Hct 44.4 MCV 94 MCH 32.1 MCHC 34.1 RDW 13.7 Plt Count 237 Lymph % (Auto) 32.2 Bee % (Auto) 7.6 Eos % (Auto) 0.2 Baso % (Auto) 0.3 Absolute Neuts (auto) 7.0 Absolute Lymphs (auto) 3.8 Absolute Monos (auto) 0.9 Absolute Eos (auto) 0.0 Absolute Basos (auto) 0.0 Seg Neutrophils % 59.7 Sodium 137.4 Potassium 4.2 Chloride 105 Carbon Dioxide 23 Anion Gap 9 BUN 33 H Creatinine 1.08 Est GFR ( Amer) > 60 Est GFR (MDRD) Non-Af > 60 Glucose 80 Calcium 9.2 Total Bilirubin 0.5 Direct Bilirubin 0.1 Neonat Total Bilirubin Not Reportable Neonat Direct Bilirubin Not Reportable Neonat Indirect Bili Not Reportable AST 24 ALT 53 Alkaline Phosphatase 84 Total Protein 6.9 Albumin 4.0 Lipase 83.5 Urine Color YELLOW Urine Appearance CLEAR Urine pH 6.0 Ur Specific [place] 1.025 Urine Protein NEGATIVE Urine Glucose (UA) NEGATIVE Urine Ketones NEGATIVE Urine Blood NEGATIVE Urine Nitrite (Reflex) NEGATIVE Urine Bilirubin NEGATIVE Urine Urobilinogen NEGATIVE Leukocyte Esterase Rfl NEGATIVE Urine RBC (Auto) 1 Urine WBC (Reflex) 1 Urine Mucus (Auto) MOD Urine Ascorbic Acid NEGATIVE Abdomen/Pelvis CT 01/12/19 20:04 IMPRESSION: 1. Mild edema in the gallbladder fossa, not unusual following recent cholecystectomy. No biliary ductal distention, or suspicious fluid collections. 2. Exam is otherwise unchanged since 12/19/2018. Scrotum Ultrasound 01/12/19 20:13 IMPRESSION: Right-sided hydrocele. copyright 2010 [email or web address]- All Rights Reserved Patient voices he does feel better after treatments in the emergency department. I have discussed negative CT images with him at bedside. Patient voices he does have a follow-up appointment with surgeon Dr. Lucero on Monday. I discussed to keep that appointment and to return to the emergency department for any concerns. I discussed giving the patient to go with [place] pack for pain control over the weekend. Patient voices understanding, stable for discharge. - Vital Signs Vital signs: Temp Pulse Resp BP Pulse Ox 98.0 F 63 20 104/67 98 01/12/19 23:20 01/12/19 23:20 01/12/19 23:20 01/12/19 23:20 01/12/19 23:20 - Laboratory Result Diagrams: 01/12/19 19:45 01/12/19 19:45 Laboratory results interpreted by me: 01/12/19 01/12/19 19:45 19:45 WBC 11.8 H BUN 33 H Discharge - Discharge Clinical Impression: Flank pain, Postoperative pain Abdominal pain Qualifiers: Abdominal location: right lower quadrant Qualified Code(s): R10.31 - Right lower quadrant pain Hydrocele Qualifiers: Hydrocele type: unspecified Qualified Code(s): N43.3 - Hydrocele, unspecified Condition: Stable Disposition: HOME, SELF-CARE Instructions: Abdominal Pain ([facility]) Additional Instructions: As we discussed you have been seen and treated in the emergency department for your postoperative pain. Please make sure you follow-up with your surgeon on Monday. Please also make sure you return to the emergency department should you have any other concerns. Forms: Return to Work Referrals: TEX CASAS MD [Primary Care Provider] - Follow up as needed TAMAR LUCERO MD [ACTIVE STAFF] - Follow up as needed
[2019-01-12 20:22] LABS: ALKALINE PHOSPHATASE 84 U/L (38-126); ANION GAP 9 (5-19); ASPARTATE AMINO TRANSFERASE 24 U/L (17-59); BILIRUBIN,DIRECT 0.1 mg/dL (0.0-0.4); BILIRUBIN,TOTAL 0.5 mg/dL (0.2-1.3); BLOOD UREA NITROGEN 33 mg/dL (7-20); CALCIUM 9.2 mg/dL (8.4-10.2); CARBON DIOXIDE 23 mmol/L (22-30); CHLORIDE 105 mmol/L (98-107); GLUCOSE 80 mg/dL (75-110); POTASSIUM 4.2 mmol/L (3.6-5.0); TOTAL PROTEIN 6.9 g/dL (6.3-8.2)
[2019-01-12] MEDS ORDERED: NORMAL SALINE 1000 ML 1,000 ML IV ONE (20:24)
--- NOTE | 2019-01-12 21:31 | RADIOLOGY REPORT (SQ) ---
EXAM DESCRIPTION: US SCROTUM COMPLETED DATE/TME: 01/12/2019 20:13 CLINICAL HISTORY: 53 years, Male, pain, more so left groin COMPARISON: None. TECHNIQUE: LIMITATIONS: None. FINDINGS: There is a moderate-sized right hydrocele. There are no focal lesions within the testicles. No evidence of testicular torsion. No evidence of epididymitis. 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 IMPRESSION: Right-sided hydrocele. copyright 2010 [employer]- All Rights Reserved
--- NOTE | 2019-01-12 21:45 | RADIOLOGY REPORT (SQ) ---
EXAM DESCRIPTION: [facility]: CT ABDOMEN PELVIS WITH IV CONTRAST CLINICAL HISTORY: 53 years Male; RLQ/flank pain, recent choley and umbilical hernia TECHNIQUE: CT of the abdomen and pelvis using intravenous contrast. All CT scans at this facility use dose modulation, iterative reconstruction, and/or weight based dosing when appropriate to reduce radiation dose to as low as reasonably achievable. COMPARISON: CT 12/19/2018 FINDINGS: Abdomen: Liver:No focal lesions. No intrahepatic ductal distention. Gallbladder: Surgically absent. There is mild edema in the gallbladder fossa, but no fluid collection. No ductal distention. Mild edema in the right anterior abdominal wall is typical for recent laparoscopy. Pancreas:Within normal limits Spleen:Within normal limits Right kidney:No hydronephrosis. No focal lesion. Left kidney:No hydronephrosis. No focal lesion. Adrenal glands:Within normal limits Vascular structures:Within normal limits Pelvis: Fat-containing umbilical hernia is unchanged. No bowel involvement or acute edema. Small bowel:No significant distention. Appendix: Short but nondistended. No adjacent edema. Colon:No distention or acute pericolonic edema. No free intraperitoneal fluid or air. Bones: Degenerative disc changes in the lower lumbar spine are again noted. No acute bone findings. Bladder: Unremarkable. No pelvic mass or adenopathy. IMPRESSION: 1. Mild edema in the gallbladder fossa, not unusual following recent cholecystectomy. No biliary ductal distention, or suspicious fluid collections. 2. Exam is otherwise unchanged since 12/19/2018.
[2019-01-12] MEDS ORDERED: HYDROCODONE/ACETAMINOPHEN 5-325 MG (6 TAB/ER DISP) PO PRN (23:00)
[2019-01-12 23:21] VITALS: BP 104/67
== END 2019-01-12 23:27 | disposition home or self-care (01) ==
LOC: ER 19:01
DX: N43.3 Hydrocele, unspecified (principal); R10.9 Unspecified abdominal pain; G89.18 Other acute postprocedural pain; R10.31 Right lower quadrant pain; N50.812 Left testicular pain; N50.811 Right testicular pain; R19.7 Diarrhea, unspecified
CPT/HCPCS: 96376; 99284; 96361; 96374; 96375; 36415; 83690; 85025; 80053; 81001; 76870; 93976; 74177; J3010; J2405; J7030; A9270

== ENCOUNTER 2019-02-22 10:52 | Emergency (ER) | payer MEDICARE ==
--- NOTE | 2019-02-22 11:17 | ER Document Report ---
ED Medical Screen (RME) - General Chief Complaint: Abdominal Pain Stated Complaint: POST OP PROBLEM Time Seen by Provider: 02/22/19 11:10 Primary Care Provider: TEX CASAS MD [Primary Care Provider] - Follow up as needed Notes: Patient is a 53-year-old male who presents emergency department with a chief complaint of abdominal pain. Patient reports about 6 weeks ago he had his gallbladder removed and a hernia repair. Patient reports yesterday he was coughing and when he got up he felt a pop around his bellybutton. Patient reports he felt a bulge yesterday but that the bulge is worse today. Patient reports he attempted to push the hernia back in but has been unable to do so fully. Patient reports his last bowel movement was today. TRAVEL OUTSIDE OF THE [place] IN LAST 30 DAYS: No - Related Data Allergies/Adverse Reactions: aspirin Allergy (Verified 01/12/19 19:56) Past Medical History - Social History Chew tobacco use (# tins/day): No Frequency of alcohol use: None Drug Abuse: None - Past Medical History Cardiac Medical History: Reports: Hx Hypercholesterolemia, Hx Hypertension Denies: Hx Coronary Artery Disease, Hx Heart Attack Pulmonary Medical History: Denies: Hx Asthma, Hx Bronchitis, Hx COPD, Hx Pneumonia Neurological Medical History: Reports: Hx Seizures - MEDICATION INDUCED 90'S. Denies: Hx Cerebrovascular Accident Musculoskeltal Medical History: Denies Hx Arthritis Psychiatric Medical History: Reports: Hx Depression Past Surgical History: Reports: Hx Appendectomy, Hx Orthopedic Surgery - neck and back - Immunizations Hx Diphtheria, Pertussis, Tetanus Vaccination: Yes Physical Exam - Vital signs Vitals: Temp Pulse Resp BP Pulse Ox 98.1 F 113 H 20 123/70 95 02/22/19 10:57 02/22/19 10:57 02/22/19 10:57 02/22/19 10:57 02/22/19 10:57 - Abdominal Notes: Palpable hernia noted above the umbilicus. Unable to reduce fully in triage. Course - Re-evaluation Re-evalutation: 02/22/19 11:16 I have greeted and performed a rapid initial assessment of this patient. A comprehensive ED assessment and evaluation of the patient, analysis of test results and completion of the medical decision making process will be conducted by additional ED providers. - Vital Signs Vital signs: Temp Pulse Resp BP Pulse Ox 98.1 F 113 H 20 123/70 95 02/22/19 11:09 02/22/19 10:57 02/22/19 11:09 02/22/19 10:57 02/22/19 11:09 Doctor's Discharge - Discharge Referrals: TEX CASAS MD [Primary Care Provider] - Follow up as needed
[2019-02-22 11:40] LABS: ABSOLUTE EOSINOPHILS # (AUTO) 0.1 10^3/uL (0.0-0.6); ABSOLUTE LYMPHOCYTES (AUTO) 3.4 10^3/uL (0.5-4.7); ABSOLUTE NEUT (AUTO) 9.8 10^3/uL (1.7-8.2); BASOPHILS % (AUTO) 0.2 % (0-2); EOSINOPHILS % (AUTO) 0.5 % (0-6); HEMATOCRIT 51.3 % (37.9-51.0); HEMOGLOBIN 17.5 g/dL (13.5-17.0); LYMPHOCYTES % (AUTO) 23.6 % (13-45); MEAN CORPUSCULAR HEMOGLOBIN 32.6 pg (27.0-33.4); MEAN CORPUSCULAR HGB CONC 34.2 g/dL (32.0-36.0); MEAN CORPUSCULAR VOLUME 96 fl (80-97); MONOCYTES % (AUTO) 7.3 % (3-13); PLATELET COUNT 310 10^3/uL (150-450); RED BLOOD COUNT 5.37 10^6/uL (4.35-5.55); RED CELL DISTRIBUTION WIDTH 13.2 % (11.5-14.0); SEGMENTED NEUTROPHILS % (AUTO) 68.4 % (42-78); TOTAL CELLS COUNTED % (AUTO) 100 %; WHITE BLOOD COUNT 14.3 10^3/uL (4.0-10.5)
[2019-02-22 11:42] LABS: APPEARANCE,URINE SLIGHTLY-CLOUDY; BILIRUBIN,URINE NEGATIVE (NEGATIVE); COLOR,URINE YELLOW; GLUCOSE, URINE NEGATIVE (NEGATIVE); KETONES,URINE NEGATIVE (NEGATIVE); LEUKOCYTE ESTERASE,URINE NEGATIVE (NEGATIVE); NITRITE,URINE NEGATIVE (NEGATIVE); PROTEIN,URINE NEGATIVE (NEGATIVE); URINE SPECIFIC GRAVITY 1.023; UROBILINOGEN,URINE NEGATIVE mg/dL (<2.0)
[2019-02-22 11:59] LABS: ALBUMIN 4.6 g/dL (3.5-5.0); ALKALINE PHOSPHATASE 77 U/L (38-126); ANION GAP 12 (5-19); ASPARTATE AMINO TRANSFERASE 27 U/L (17-59); BILIRUBIN,DIRECT 0.1 mg/dL (0.0-0.4); BILIRUBIN,TOTAL 1.3 mg/dL (0.2-1.3); BLOOD UREA NITROGEN 27 mg/dL (7-20); CALCIUM 9.7 mg/dL (8.4-10.2); CARBON DIOXIDE 22 mmol/L (22-30); CHLORIDE 107 mmol/L (98-107); GLUCOSE 104 mg/dL (75-110); POTASSIUM 4.7 mmol/L (3.6-5.0); TOTAL PROTEIN 7.9 g/dL (6.3-8.2)
[2019-02-22] MEDS ORDERED: MORPHINE SULFATE 10 MG/ML INJ IV ONE (15:41)
[2019-02-22] MEDS ORDERED: ONDANSETRON HCL INJ/PF 4 MG/2 ML SDV IV ONE (16:58)
[2019-02-22] MEDS ORDERED: HYDROMORPHONE HCL INJ/PF 2 MG/ML AMPULE IV ONE (16:58)
--- NOTE | 2019-02-22 18:45 | ER Document Report ---
Entered by ODILON LLANOS SCRIBE 02/22/19 1634 Acting as scribe for:CASANDRA BUCK IV, MD ED General - General Mode of Arrival: Ambulatory Information source: Patient TRAVEL OUTSIDE OF THE [place] IN LAST 30 DAYS: No <CASANDRA BUCK IV - Last Filed: 02/22/19 20:03> <ABHIJIT MUÑOZ - Last Filed: 02/22/19 21:47> - General Chief Complaint: Abdominal Pain Stated Complaint: POST OP PROBLEM Time Seen by Provider: 02/22/19 11:10 Primary Care Provider: TEX CASAS MD [Primary Care Provider] - Follow up as needed Notes: This 53-year-old male patient presents to the emergency department today with concerns for possibly damaging his recent umbilical hernia repair. Patient s tates that he has had a dry cough for the last few days and last night during a coughing spell he "felt something pop over the hernia". Patient states that the hernia was repaired by Dr. Lucero. Patient states he was told after the surgery that they "did not use mesh because of how long and extensive the operation was, he did not have time to put in the mesh". Patient states that Dr. Lucero told him that there was a 50% chance that without using mesh this hernia would recur. Patient states he has never had pain before with this hernia but after hearing this pop last night he has had pain over this area. Patient states he feels "real gassy". Patient denies any nausea, vomiting, diarrhea, or constipation. (CASANDRA BUCK IV) - Related Data Allergies/Adverse Reactions: aspirin Allergy (Verified 01/12/19 19:56) Past Medical History - General Information source: Patient - Social History Smoking Status: Current Every Day Smoker Cigarette use (# per day): Yes Chew tobacco use (# tins/day): No Frequency of alcohol use: None Drug Abuse: None Lives with: Family Family History: Reviewed & Not Pertinent Patient has suicidal ideation: No Patient has homicidal ideation: No - Past Medical History Cardiac Medical History: Reports: Hx Hypercholesterolemia, Hx Hypertension Neurological Medical History: Reports: Hx Seizures - MEDICATION INDUCED in the 90s Psychiatric Medical History: Reports: Hx Depression Past Surgical History: Reports: Hx Appendectomy, Hx Herniorrhaphy, Hx Orthopedic Surgery - neck and back - Immunizations Hx Diphtheria, Pertussis, Tetanus Vaccination: Yes <CASANDRA BUCK IV - Last Filed: 02/22/19 20:03> Review of Systems - Review of Systems Constitutional: No symptoms reported EENT: No symptoms reported Cardiovascular: No symptoms reported Respiratory: See HPI, Cough Gastrointestinal: See HPI, Abdominal pain. denies: Diarrhea, Nausea, Vomiting, Constipation Genitourinary: No symptoms reported Male Genitourinary: No symptoms reported Musculoskeletal: No symptoms reported Skin: No symptoms reported Hematologic/Lymphatic: No symptoms reported Neurological/Psychological: No symptoms reported -: Yes All other systems reviewed and negative <CASANDAR BUCK IV - Last Filed: 02/22/19 20:03> Physical Exam <CASANDRA BUCK IV - Last Filed: 02/22/19 20:03> - Vital signs Vitals: Temp Pulse Resp BP Pulse Ox 98.1 F 113 H 20 123/70 95 02/22/19 10:57 02/22/19 10:57 02/22/19 10:57 02/22/19 10:57 02/22/19 10:57 - Notes Notes: Physical Exam: General: Alert, appears well. HEENT: Normocephalic. Atraumatic. PERRL. Extraocular movements intact. Oropharynx clear. Neck: Supple. Non-tender. Respiratory: No respiratory distress. Clear and equal breath sounds bilaterally. Cardiovascular: Regular rate and rhythm. Abdominal: Normal Inspection. Non-tender. No distension. Normal Bowel Sounds. Back: No gross abnormalities. Extremities: Moves all four extremities. Upper extremities: Normal inspection. Normal ROM. Lower extremities: Normal inspection. No edema. Normal ROM. Neurological: Normal cognition. AAOx4. Normal speech. Psychological: Normal affect. Normal Mood. Skin: Warm. Dry. Normal color. (CASANDRA BUCK IV) Course - Laboratory Result Diagrams: 02/22/19 11:20 02/22/19 11:20 <CASANDRA BUCK IV - Last Filed: 02/22/19 20:03> - Laboratory Result Diagrams: 02/22/19 11:20 02/22/19 11:20 <ABHIJIT MUÑOZ - Last Filed: 02/22/19 21:47> - Re-evaluation Re-evalutation: 02/22/19 21:44 The patient was signed out to me at shift change since his CT was pending. The patient recently had his gallbladder removed a hernia repaired. The patient felt a pop today and has pain around his umbilicus. CT shows a fat containing umbilical hernia which is likely new. Patient was given a short course of pain medications and he was told to follow up with his Surgeon as scheduled. Patient's labs are unremarkable. (ABHIJIT MUÑOZ) - Vital Signs Vital signs: Temp Pulse Resp BP Pulse Ox 98.1 F 89 19 103/85 96 02/22/19 17:21 02/22/19 17:21 02/22/19 17:21 02/22/19 17:21 02/22/19 17:21 - Laboratory Laboratory results interpreted by me: 02/22/19 02/22/19 11:20 11:20 WBC 14.3 H Hgb 17.5 H Hct 51.3 H Absolute Neuts (auto) 9.8 H BUN 27 H - Transfer of Care Notes: 02/22/19 19:[address] MUÑOZ (CASANDRA BUCK IV) Discharge <CASANDRA BUCK IV - Last Filed: 02/22/19 20:03> <ABHIJIT MUÑOZ - Last Filed: 02/22/19 21:47> - Discharge Clinical Impression: Abdominal pain Qualifiers: Abdominal location: periumbilical Qualified Code(s): R10.33 - Periumbilical pain Umbilical hernia Qualifiers: Obstruction and gangrene presence: without obstruction or gangrene Qualified Code(s): K42.9 - Umbilical hernia without obstruction or gangrene Condition: Stable Disposition: HOME, SELF-CARE Instructions: Umbilical Hernia ([facility]) Additional Instructions: Use Tylenol and Motrin for abdominal pain. Also use the [place] you were given in the ER. Follow up with your Surgeon and tell him about your ER vist and CT scan showing fat containing umbilical hernia. Referrals: TEX CASAS MD [Primary Care Provider] - Follow up as needed I personally performed the services described in the documentation, reviewed and edited the documentation which was dictated to the scribe in my presence, and it accurately records my words and actions.
--- NOTE | 2019-02-22 20:44 | RADIOLOGY REPORT (SQ) ---
EXAM DESCRIPTION: CT ABDOMEN PELVIS WITH IV CONTRAST COMPLETED DATE/TME: 02/22/2019 00:00 CLINICAL HISTORY: 53 years, Male, s/p neftali and hernia repair, c/o epigastric pain COMPARISON: Prior study from 01/12/2019 TECHNIQUE: Contrast enhanced CT of the abdomen/pelvis was performed. Images were obtained after the uneventful administration of 100 mL of Omnipaque 350 intravenous contrast. Images stored on PACS. All CT scanners at this facility use dose modulation, iterative reconstruction, and/or weight based dosing when appropriate to reduce radiation dose to as low as reasonably achievable (ALARA). [facility]: Dose Right [facility]: CareDose [facility]: Dose Right [facility]: Teradose 4D [facility]: SyCara Local LIMITATIONS: None. FINDINGS: Limited evaluation of the lower chest reveals clear lung bases. The liver is diffusely low in attenuation relative to the spleen. No focal liver lesions are appreciated. The spleen, pancreas, both adrenal glands, and both kidneys appear normal. The gallbladder is absent. There is no hydronephrosis or hydroureter. The urinary bladder is well distended and shows no suspicious finding. Small bilateral fat-containing inguinal hernias are evident. Small and large bowel appear normal in caliber. No evidence of bowel obstruction. Appendix is not visualized. Mild calcifications are noted about the abdominal aorta and proximal iliac vessels. There is a circumaortic left renal vein. No lymphadenopathy or drainable fluid collections are appreciated. Visualized is a small fat-containing umbilical hernia. Mild inflammatory stranding is noted about the hernia orifice. The hernia orifice measures 1.3 cm in diameter. Bone windows show no destructive osseous lesions. IMPRESSION: Small fat-containing umbilical hernia which demonstrates inflammatory stranding at its orifice, suspicious for an incarcerated umbilical hernia. Correlate with physical exam. Suspect hepatic steatosis. TECHNICAL DOCUMENTATION: Quality ID # [id number]: Final reports with documentation of one or more dose reduction techniques (e.g., Automated exposure control, adjustment of the mA and/or kV according to patient size, use of iterative reconstruction technique) copyright 2011 [employer]- All Rights Reserved
[2019-02-22] MEDS ORDERED: HYDROCODONE/ACETAMINOPHEN 5-325 MG (6 TAB/ER DISP) PO PRN (21:48)
[2019-02-22 22:06] VITALS: BP 131/85
== END 2019-02-22 22:04 | disposition home or self-care (01) ==
LOC: ER 10:52
DX: K42.9 Umbilical hernia without obstruction or gangrene (principal); R10.33 Periumbilical pain; F17.210 Nicotine dependence, cigarettes, uncomplicated; E78.00 Pure hypercholesterolemia, unspecified; I10 Essential (primary) hypertension; Z88.6 Allergy status to analgesic agent
CPT/HCPCS: 99284; 96374; 96375; 36415; 83605; 85025; 80053; 81001; 74177; J2270; J1170; J2405; A9270

== ENCOUNTER 2019-03-01 09:13 | Day surgery (SDC) | payer MEDICARE ==
[~2019-03-01 09:13] MED LIST changes: -ACETAMINOPHEN 1,000 MG/100 ML RTUPB IV PRN; -DEXAMETHASONE SOD PHOSPHATE INJ 4 MG/1 ML VIAL ONE; -GLYCOPYRROLATE 1 MG/5 ML VIAL ONE; -ONDANSETRON HCL INJ/PF 4 MG/2 ML SDV ONE; -ROCURONIUM BROMIDE INJ 50 MG/5 ML VIAL IV ONE; -SUCCINYLCHOLINE CHLORIDE INJ 200 MG/10 ML VIAL ONE
[2019-03-01] MEDS ORDERED: GLYCOPYRROLATE 1 MG/5 ML VIAL ONE (09:55)
[2019-03-01] MEDS ORDERED: ROCURONIUM BROMIDE INJ 50 MG/5 ML VIAL IV ONE (09:55)
[2019-03-01] MEDS ORDERED: NEOSTIGMINE METHYLSULFATE 10 MG/10 ML VIAL ONE (09:55)
[2019-03-01] MEDS ORDERED: PREGABALIN 50 MG CAPSULE ONE (10:24)
[2019-03-01] MEDS ORDERED: ACETAMINOPHEN 325 MG TABLET ONE (10:24)
[2019-03-01] MEDS ORDERED: FENTANYL CITRATE INJ/PF 250 MCG/5 ML AMPULE ONE (12:13)
[2019-03-01] MEDS ORDERED: DEXAMETHASONE SOD PHOSPHATE INJ 4 MG/1 ML VIAL ONE (12:14)
[2019-03-01] MEDS ORDERED: MORPHINE SULFATE 10 MG/ML INJ ONE (12:14)
[2019-03-01] MEDS ORDERED: MIDAZOLAM 2 MG/2 ML INJ ONE (12:14)
[2019-03-01] MEDS ORDERED: PROPOFOL INJ 200 MG/20 ML VIAL IV ONE (12:14)
[2019-03-01] MEDS ORDERED: ONDANSETRON HCL INJ/PF 4 MG/2 ML SDV ONE (12:14)
[2019-03-01] MEDS ORDERED: BUPIVACAINE HCL 0.25 % INJ/PF (2.5 MG/1 ML) 30 ML VIAL ONE (12:24)
[2019-03-01] MEDS ORDERED: MORPHINE SULFATE 10 MG/ML INJ IV PRN (13:04)
[2019-03-01] MEDS ORDERED: DIPHENHYDRAMINE HCL 50 MG/ML VIAL IV PRN (13:04)
[2019-03-01] MEDS ORDERED: MEPERIDINE HCL/PF INJ 25 MG/1 ML DISP.SYRIN IV PRN (13:04)
[2019-03-01] MEDS ORDERED: FENTANYL CITRATE INJ/PF 100 MCG/2 ML AMPUL IV PRN ×3 (13:04)
[2019-03-01] MEDS ORDERED: PROMETHAZINE HCL INJ 25 MG/1 ML VIAL IV PRN ×2 (13:04)
[2019-03-01] MEDS ORDERED: FENTANYL CITRATE INJ/PF 100 MCG/2 ML AMPUL ONE (14:32)
[2019-03-01] MEDS ORDERED: HYDROCODONE/ACETAMINOPHEN 10-325 MG TABLET PO PRN (14:59)
[2019-03-01] MEDS ORDERED: HYDROMORPHONE HCL INJ/PF 2 MG/ML AMPULE ONE (15:01)
[2019-03-01] MEDS ORDERED: HYDROCODONE/ACETAMINOPHEN 10-325 MG TABLET ONE (16:01)
[2019-03-01 17:27] VITALS: BP 117/77
[2019-03-01] MEDS ORDERED: IBUPROFEN 800 MG TABLET PO SCH (18:00)
--- NOTE | 2019-03-04 15:24 | Discharge Summary ---
Discharge Summary (SDC) - Discharge Final Diagnosis: Recurrent incarcerated umbilical hernia Date of Surgery: 03/01/19 Discharge Date: 03/01/19 Condition: Stable Forms: ASU Anesthesia D/C Instruction, Discharge POC-Surgical Service Treatment or Instructions: NO DRIVING, ALCOHOL, OR IMPORTANT DECISIONS FOR 24 HOURS. NO LIFTING MORE THAN 10 POUNDS FOR 6 WEEKS. NO PUSHING, PULLING. MAY SHOWER IN 48 HOURS. NO TUB BATHS, HOT TUBS, SWIMMING FOR 2 WEEKS. STERISTRIPS WILL FALL OFF ON THEIR OWN. YOU HAD NORCO 10/325 MG ON 03/01/19 AT 4:02 PM. MAY USE A STOOL SOFTENER. KEEP YOUR FOLLOW-UP APPOINTMENT. CALL YOUR PROVIDER'S OFFICE WITH QUESTIONS. REVIEW YOUR DISCHARGE PAPERWORK AND INFORMATION ON UMBILICAL HERNIA REPAIR. Referrals: TAMAR ENCINAS MD [ACTIVE STAFF] - 03/12/19 8:30 am Discharge Diet: As Tolerated Respiratory Treatments at Home: Deep Breathing/Coughing, Incentive Spirometer Discharge Activity: Balance Activity w/Rest, No Driving, No Lifting Over 10 Pounds, No Lifting/Push/Pulling, Slowly Increase Activity, No tub bath Home Care Assistance: None Needed Report the Following to Your Physician Immediately: Shortness of Breath, Nausea, Vomiting, Increase in Pain, Fever over 101 Degrees, Unusual Bleeding, Redness, S welling, Warmth, Drainage-Foul Smelling
--- NOTE | 2019-03-04 15:42 | Operative Report ---
Nonrecallable Operative Report DATE OF SURGERY: 03/01/19 PREOPERATIVE DIAGNOSIS: Recurrent incarcerated umbilical hernia POSTOPERATIVE DIAGNOSIS: Same as above OPERATION: Robot-assisted laparoscopic recurrent, incarcerated umbilical hernia repair with mesh. SURGEON: TAMAR ENCINAS ANESTHESIA: GA TISSUE REMOVED OR ALTERED: None COMPLICATIONS: None apparent ESTIMATED BLOOD LOSS: Minimal PROCEDURE: Drains/implants: 10 x [address] hernia mesh. Procedure in detail: After informed consent was obtained, the patient was brought into the operating room and laid in the supine position. The area of the abdomen was prepped and draped in a normal sterile fashion. A 5 mm camera and 5 mm trocar were inserted in the left upper quadrant under direct laparoscopic visualization. Gas insufflation was attached, and pneumoperitoneum was achieved. Next, a 12 mm left lateral trocar was placed as well as an 8 mm left lower quadrant trocar. This was done under direct laparoscopic visualization. The left upper quadrant 5 mm trocar was then replaced with a robotic 8 mm trocar. The robot was brought over the patient and docked appropriately. I then assumed my position at the surgeon's console. Attention was turned to the umbilical hernia defect. There was incarcerated omentum, with attached small bowel immediately adjacent to the hernia defect. Lysis of adhesions was undertaken in order to reduce all of the incarcerated omentum. Great care was taken not to damage or injure the small bowel. Once the incarcerated omentum and small intestine were freed from the hernia defect, a number 1 V lock suture was used to close the defect. This was done in simple running fashion. Once the defect was closed, a 10 x [address] hernia mesh was placed into the abdominal cavity. It was apposed to the anterior abdominal wall using the EPS. The mesh was then sutured circumferentially using 2-0 V lock suture in simple running fashion. Once this was completed, another 20V lock suture was used to suture the middle of the mesh to the anterior abdominal wall. After the mesh was completely sewn into place, it was inspected. It was found to be in very good position. The robot was then undocked, and I scrubbed back into the case. The 8 mm trocar sites were closed using 0 Vicryl suture in [id number] fashion. The 12 mm trocar site was closed using 0 Vicryl suture in klbumh-dx-[id number] fashion. This was done with the aid of the Luis-Alana device. The overlying skin was closed using 4-0 Vicryl Rapide suture in subcuticular fashion. Dressings were placed, and the procedure was concluded. All sponge, instrument, and needle counts were correct x2. Condition: Stable.
== END 2019-03-01 17:20 | disposition home or self-care (01) ==
LOC: OROUT 09:13
PROVIDERS: ATTEND Surgery
DX: K42.0 Umbilical hernia with obstruction, without gangrene (principal); F17.210 Nicotine dependence, cigarettes, uncomplicated
CPT/HCPCS: 49653; S2900; 750; C1781; J0690; J1100; J1170; J1741; J2250; J2270; J2405; J2704; J2710; J3010; J3490; J7050; J7060

== ENCOUNTER → 2019-09-04 | Outpatient (CLI) | payer MEDICARE ==
--- NOTE | 2019-09-04 19:03 | RADIOLOGY REPORT (SQ) ---
EXAM DESCRIPTION: L SPINE WHOLE IMAGES COMPLETED DATE/TIME: 09/04/2019 6:30 pm REASON FOR STUDY: (S30.0XXA)CONTUSION OF LOWER BACK AND PELVIS, INITIAL ENCOUNTER S30.0XXA CONTUSIO N OF LOWER BACK AND PELVIS, INITIAL ENCOUNT COMPARISON: None. NUMBER OF VIEWS: Five views including obliques. TECHNIQUE: AP, lateral, oblique, and sacral radiographic images acquired of the lumbar spine. LIMITATIONS: None. FINDINGS: MINERALIZATION: Normal. SEGMENTATION: Normal. No transitional anatomy. ALIGNMENT: Dextroconvex scoliosis. VERTEBRAE: Maintained height. No fracture or worrisome bone lesion. DISCS: Multilevel disc space narrowing more so at L4-5 and L5-S1. POSTERIOR ELEMENTS: Facet arthrosis lower lumbar spine more so on the right. Pedicles are intact. No pars defect or posterior arch defects. HARDWARE: None in the spine. PARASPINAL SOFT TISSUES: Normal. PELVIS: Intact as visualized. No fractures or worrisome bone lesions. Degenerative changes at the SI joints, more so on the left. OTHER: Small subcentimeter calcification overlies the lower pole of the right kidney. Prior cholecy stectomy. IMPRESSION: 1. Degenerative disc disease, more so at L4-5 and L5-S1. The set arthrosis lower lumba r spine, more so on the right. 2. Additional findings as above. TECHNICAL DOCUMENTATION: JOB ID: [id number] 2010 [employer]- All Rights Reserved Reading location - IP/workstation name: [email or web address]
== END ==
LOC: RAD 17:51
PROVIDERS: ATTEND Nurse Practitioner Acute Care
DX: S30.0XXA Contusion of lower back and pelvis, initial encounter (principal); X58.XXXA Exposure to other specified factors, initial encounter; Y93.9 Activity, unspecified; Y92.9 Unspecified place or not applicable
CPT/HCPCS: 72110

== ENCOUNTER 2019-10-05 10:49 | Emergency (ER) | payer MEDICARE ==
[2019-10-05] MEDS ORDERED: ACETAMINOPHEN 325 MG TABLET PO ONE (12:39)
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
[2019-10-05 14:08] LABS: ABSOLUTE EOSINOPHILS # (AUTO) 0.1 10^3/uL (0.0-0.6); ABSOLUTE LYMPHOCYTES (AUTO) 2.8 10^3/uL (0.5-4.7); ABSOLUTE MONOCYTES (AUTO) 0.9 10^3/uL (0.1-1.4); BASOPHILS % (AUTO) 0.2 % (0-2); EOSINOPHILS % (AUTO) 1.2 % (0-6); HEMATOCRIT 47.5 % (37.9-51.0); HEMOGLOBIN 16.3 g/dL (13.5-17.0); LYMPHOCYTES % (AUTO) 23.6 % (13-45); MEAN CORPUSCULAR HEMOGLOBIN 33.3 pg (27.0-33.4); MEAN CORPUSCULAR HGB CONC 34.4 g/dL (32.0-36.0); MEAN CORPUSCULAR VOLUME 97 fl (80-97); MONOCYTES % (AUTO) 7.3 % (3-13); PLATELET COUNT 273 10^3/uL (150-450); RED BLOOD COUNT 4.91 10^6/uL (4.35-5.55); RED CELL DISTRIBUTION WIDTH 13.7 % (11.5-14.0); SEGMENTED NEUTROPHILS % (AUTO) 67.7 % (42-78); TOTAL CELLS COUNTED % (AUTO) 100 %; WHITE BLOOD COUNT 11.8 10^3/uL (4.0-10.5)
[2019-10-05 14:28] LABS: ALBUMIN 4.3 g/dL (3.5-5.0); ALKALINE PHOSPHATASE 65 U/L (38-126); ANION GAP 9 (5-19); ASPARTATE AMINO TRANSFERASE 55 U/L (17-59); BILIRUBIN,DIRECT 0.1 mg/dL (0.0-0.4); BLOOD UREA NITROGEN 16 mg/dL (7-20); CALCIUM 9.6 mg/dL (8.4-10.2); CARBON DIOXIDE 23 mmol/L (22-30); CHLORIDE 106 mmol/L (98-107); GLUCOSE 80 mg/dL (75-110); POTASSIUM 4.5 mmol/L (3.6-5.0); TOTAL PROTEIN 7.2 g/dL (6.3-8.2)
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
[2019-10-05 16:35] VITALS: BP 120/67
== END 2019-10-05 16:33 | disposition home or self-care (01) ==
LOC: ER 10:49
DX: S20.211A Contusion of right front wall of thorax, initial encounter (principal); S90.32XA Contusion of left foot, initial encounter; R07.81 Pleurodynia; M79.604 Pain in right leg; M79.671 Pain in right foot; V03.90XA Pedestrian on foot injured in collision with car, pick-up truck or van, unspecified whether traffic or nontraffic accident, initial encounter; Z88.8 Allergy status to other drugs, medicaments and biological substances; I10 Essential (primary) hypertension
CPT/HCPCS: 99284; 36415; 85025; 80053; 71046; 73630; 73590; 71260; A9270